=== PATIENT | female | born 1945 | race Hispanic/Latino ===

== ENCOUNTER 2017-01-11 23:54 | Emergency (ER) | payer MEDICARE ==
--- NOTE | 2017-01-12 00:20 | EDM.PDOC ---
ED HPI GENERAL MEDICAL PROBLEM - General Chief Complaint: Lower Extremity Injury/Pain Stated Complaint: [facility] Time Seen by Provider: 01/11/17 23:58 Source of Information: Reports: Patient History Limitations: Reports: No Limitations - History of Present Illness INITIAL COMMENTS - FREE TEXT/NARRATIVE: This is a 71-year-old female. She was at the [employer] and was going to sing a song but before she went up stage she went to go to the restroom and as she was walking towards the restroom there were some children playing that ran past her and one of them bumped her and she fell to the floor. She landed on her right knee and complains of right knee pain. At the scene she was unable to bear on that right knee so she was brought to the ER by ambulance. She did not hit her head no loss of consciousness she has no hand wrist or upper extremity injury. She denies any left lower extremity injury. She has no right hip pain right ankle or foot pain. She does have some mild soreness in her mid back area. She denies any other acute symptoms. Right Knee Pain Score (Numeric/FACES): 7 - Related Data Allergies Allergy/AdvReac Type Severity Reaction Status Date / Time morphine Allergy Difficulty Verified 01/12/17 00:00 Swallowing Home Meds: Home Meds Acetaminophen/oxyCODONE [Percocet 325-5 MG] 1 tab PO Q6H PRN #20 tablet [Rx] Dextroamphetamine/Amphetamine [Adderall] 01/12/17 [History] Hydrocodone/Acetaminophen [Hydrocodon-Acetaminophn 10-325] 1 tab PO Q4HR PRN [History] Insulin Glarg,Human.Rec.Analog [Lantus] 01/12/17 [History] Review of Systems - Review of Systems Review Of Systems: See Below Constitutional: Reports: No Symptoms Eyes: Reports: No Symptoms Ears: Reports: No Symptoms Nose: Reports: No Symptoms Mouth/Throat: Reports: No Symptoms Respiratory: Reports: No Symptoms Cardiovascular: Reports: No Symptoms GI/Abdominal: Reports: No Symptoms Musculoskeletal: Reports: Other (As per HPI) Skin: Reports: No Symptoms Neurological: Reports: No Symptoms Psychiatric: Reports: No Symptoms Trauma Exam - Physical Exam Exam: See Below Exam Limited By: No Limitations General Appearance: Reports: Alert, WD/WN, Mild Distress Head: Reports: Atraumatic, Normocephalic Ears: Reports: Normal External Exam Nose: Reports: Normal Inspection Throat/Mouth: Reports: Normal Inspection Neck: Reports: Non-Tender Respiratory Exam: Reports: No Respiratory Distress, Other (Ribs on the right side and left side did not appear to be tender on palpation) GI/Abdominal: Reports: Soft, Non-Tender Back: Reports: Other (She seems to have some tenderness in the lower thoracic right paraspinal area on palpation, she does appear to having midline tenderness or step offs noted) Extremities: Other (Her right hip is nontender on palpation, her left knee has a small effusion noted and she seems to be tender over the patella as well as along the medial side of that knee, due to the pain and the examination is somewhat limited, her right ankle and foot does not appear to be tender though she does have 1+ edema in the ankle and foot but this is bilaterally, her left lower extremity she denies any pain or tenderness or trauma, her upper extremities she denies any hand wrist elbow or shoulder tenderness of the upper extremities) Neurologic: Reports: No Motor/Sensory Deficits, Alert, Oriented x 3 Skin: Reports: Normal Color, Warm/Dry - [place] Coma Score Best Eye Response (Xi): (4) Open Spontaneously Best Verbal Response (Xi): (5) Oriented Best Motor Response ([place]): (6) Obeys Commands [place] Total: 15 Course - Vital Signs Last Recorded V/S: Last Vital Signs Temp 98.5 F 01/12/17 00:01 Pulse 92 01/12/17 06:04 Resp 16 01/12/17 06:04 BP 164/88 H 01/12/17 06:04 Pulse Ox 95 01/12/17 06:04 - Orders/Labs/Meds Orders: Active Orders 24 hr Category Date Time Status Knee Min 4V Rt [CR] Stat Exams 01/12/17 00:09 Taken Knee wo Cont Rt [CT] Stat Exams 01/12/17 00:52 Taken Lumbar Spine wo Cont [CT] Stat Exams 01/12/17 00:52 Taken Thoracic Spine wo Cont [CT] Stat Exams 01/12/17 00:52 Taken Meds: Medications Discontinued Medications Generic Name Dose Route Start Last Admin Trade Name Freq PRN Reason Stop Dose Admin Hydromorphone HCl 0.5 mg 01/12/17 00:51 01/12/17 00:59 Dilaudid IVPUSH 01/12/17 00:52 0.5 mg ONETIME ONE Administration Hydromorphone HCl 1 mg 01/12/17 01:40 01/12/17 01:47 Dilaudid IVPUSH 01/12/17 01:41 1 mg ONETIME ONE Administration Hydromorphone HCl 1 mg 01/12/17 03:12 01/12/17 03:19 Dilaudid IVPUSH 01/12/17 03:13 1 mg ONETIME ONE Administration Ondansetron HCl 4 mg 01/12/17 00:51 01/12/17 00:59 Zofran IVPUSH 01/12/17 00:52 4 mg ONETIME ONE Administration - Radiology Interpretation Free Text/Narrative:: X-ray of the right knee shows a lateral tibial plateau fracture. We will go ahead and get a CT scan of the knee. - Re-Assessments/Exams Free Text/Narrative Re-Assessment/Exam: 01/12/17 00:54 I spoke to the patient regarding the x-ray results and the need for a CAT scan, while were doing the CAT scan we'll get a CAT scan of her thoracic and lumbar spine she she's complaining of pain with movement. 01/12/17 06:47 Patient has been sleeping after getting the pain medication we've been waiting for her nephew to come here to get her. She is opted to go back home and see her bone specialist they arrived and did be going to discharge regarding her right knee fracture. Presently the fracture is nondisplaced we placed her in a very padded cotton wrap with a knee immobilizer for which she has to stay in until she gets home and sees a specialist. 01/12/17 06:59 I spoke to the nephew regarding the fracture and showed him the x-ray. I also spoke to him and showed him the padding in a knee immobilizer that she cannot bear weight on that right knee at all. She will be going home probably tomorrow and he is going to get the pain medications at noon from [place] [facility] Departure - Departure Time of Disposition: 06:59 Disposition: Home, Self-Care 01 Condition: fair Clinical Impression: Closed fracture of lateral portion of right tibial plateau Qualifiers: Encounter type: initial encounter Qualified Code(s): S82.121A - Displaced fracture of lateral condyle of right tibia, initial encounter for closed fracture Strain of thoracic spine Qualifiers: Encounter type: initial encounter Qualified Code(s): S29.019A - Strain of muscle and tendon of unspecified wall of thorax, initial encounter Strain of lumbar spine Qualifiers: Encounter type: initial encounter Qualified Code(s): S39.012A - Strain of muscle, fascia and tendon of lower back, initial encounter - Discharge Information Prescriptions: Acetaminophen/oxyCODONE [Percocet 325-5 MG] 1 tab PO Q6H PRN #20 tablet PRN Reason: Pain Referrals: PCP,Not In Area [Primary Care Provider] - Forms: ED Department Discharge Additional Instructions: Go directly home, wear the knee immobilizer at all times and to not bear weight on that right leg since you don't want to turn a nondisplaced fracture into a displaced fracture that would require surgery, once you get home speak to your primary care physician immediately to be seen by a knee specialist for evaluation of your fracture, make sure you take the disc and the reports of for the CT scan to the specialist so he can review them, and get your pain medications before you leave town, return to the ER if needed - My Orders Last 24 Hours: My Active Orders 01/12/17 00:09 Knee Min 4V Rt [CR] Stat 01/12/17 00:52 Knee wo Cont Rt [CT] Stat Lumbar Spine wo Cont [CT] Stat Thoracic Spine wo Cont [CT] Stat - Assessment/Plan Last 24 Hours: My Active Orders 01/12/17 00:09 Knee Min 4V Rt [CR] Stat 01/12/17 00:52 Knee wo Cont Rt [CT] Stat Lumbar Spine wo Cont [CT] Stat Thoracic Spine wo Cont [CT] Stat
[2017-01-12] MEDS ORDERED: HYDROmorphone 1 MG/ML Syringe IVPUSH ONE ×3 (00:51→03:12)
[2017-01-12] MEDS ORDERED: Ondansetron 4 MG/2 ML SDV IVPUSH ONE (00:51)
[2017-01-12 06:05] VITALS: BP 164/88
[2017-01-12] MEDS ORDERED: HYDROmorphone 0.5 MG/0.5 ML Syringe IVPUSH ONE (07:07)
--- NOTE | 2017-01-13 07:37 | CR ---
Right knee: Four views of the right knee were obtained. Comparison: No previous knee study. Fracture is identified within the lateral tibial plateau. Mild concavity is seen of the lateral tibial plateau. Fracture also noted within the fibular head. Bony structures are osteopenic. Fat fluid level seen within the suprapatellar pouch. Vascular calcification is noted. Impression: 1. Slightly depressed lateral tibial plateau fracture as well as nondisplaced fibular head fracture. 2. Fat fluid level within the suprapatellar pouch. 3. Osteopenia. Diagnostic code #3
--- NOTE | 2017-01-13 07:37 | CT ---
CT lumbar spine Technique: Multiple axial sections were obtained through the lumbar spine. Reconstructed sagittal and coronal images were reviewed. Severe compression deformity noted of L3. Retrolisthesis of the posterior vertebral line is seen by about 3.7 mm at L3. This finding causes minimal central canal stenosis felt not to be clinically significant. This is felt to be old. Mild scattered areas of disc bulging noted. Degenerative apophyseal change is seen. No acute fracture lines are seen within the lumbar spine. Impression: 1. Severe compression deformity of L3 with mild retrolisthesis of the posterior vertebral line which appears chronic. 2. Osteopenia and degenerative change. 3. Nothing acute is identified on CT study of the lumbar spine. Diagnostic code #3 I agree with preliminary report issued by [facility] ([facility] report finalized on 01/12/17, 3:01 AM Central Time)
--- NOTE | 2017-01-13 07:37 | CT ---
CT thoracic spine Technique: Multiple axial sections through the thoracic spine were obtained. Reconstructed coronal and sagittal images were reviewed. Comparison: No previous study is available. Findings: Moderate anterior wedge deformity noted of T10. This could be acute or old. Mild compression deformity noted of T11 which could also be acute or old. Other vertebral body heights within the thoracic spine are maintained. Mild kyphosis is seen which is centered to the thoracolumbar junction. No abnormal subluxation is seen. No bony central canal stenosis is noted. Parasagittal images show no neural foraminal stenosis. Scattered endplate osteophytes are seen throughout the spine. Impression: 1. Mild endplate compression deformities of T10 and T11. Age of these are indeterminate and MRI would be needed to age these findings if clinically indicated. 2. Osteopenia and degenerative change. Diagnostic code #3 I agree with preliminary report issued by [facility] ([facility] report finalized on 01/12/17, 3:01 AM Central Time)
--- NOTE | 2017-01-13 09:46 | CT ---
CT right knee Technique: Multiple axial sections were obtained through the right knee. Reconstructed coronal and sagittal images were reviewed. Comparison: Previous plain film knee exam of 01/12/17 (12:21 AM). Lateral tibial plateau fracture is seen. Fracture line is orientated vertically. Minimal compression is seen of the lateral tibial plateau. Nondisplaced fibular head fracture is seen. Lucency noted within the patella which could be due to nondisplaced acute or old fracture. Fat fluid level is seen within the suprapatellar pouch. Bony structures are osteoporotic. Vascular calcification is seen. Diffuse soft tissue swelling is identified. Impression: 1. Minimally impacted lateral tibial plateau fracture. 2. Nondisplaced fibular head fracture. 3. Nondisplaced patellar fracture (either old or acute). 4. Fat fluid level within the suprapatellar pouch, other incidental findings. Diagnostic code #3 I agree with preliminary report issued by [facility] ([facility] report finalized on , 3:05 AM Central Time) [facility]
== END 2017-01-12 07:19 | disposition home or self-care (01) ==
LOC: JD.ED 23:54
DX: S82.121A Displaced fracture of lateral condyle of right tibia, initial encounter for closed fracture (principal); S29.019A Strain of muscle and tendon of unspecified wall of thorax, initial encounter; S39.012A Strain of muscle, fascia and tendon of lower back, initial encounter; Z88.5 Allergy status to narcotic agent; Z79.899 Other long term (current) drug therapy; Z79.4 Long term (current) use of insulin; W01.198A Fall on same level from slipping, tripping and stumbling with subsequent striking against other object, initial encounter
CPT/HCPCS: 72128; 72131; 73564; 73700; 96374; 96375; 96376; 99285; J1170; J2405; 99284